=== PATIENT | female | born 1955 | race Two or more races ===

== ENCOUNTER 2022-05-02 05:45 | Day surgery (SDC) | payer OTHER | END 2022-05-02 11:55 | disposition home or self-care (01) | LOC: AMB-ENDOS 05:45 | PROVIDERS: ATTEND Surgery | DX: D12.4 Benign neoplasm of descending colon (principal); Z20.822 Contact with and (suspected) exposure to COVID-19; K57.30 Diverticulosis of large intestine without perforation or abscess without bleeding; K64.4 Residual hemorrhoidal skin tags; I10 Essential (primary) hypertension; E78.5 Hyperlipidemia, unspecified; E03.9 Hypothyroidism, unspecified; E10.9 Type 1 diabetes mellitus without complications ==

== ENCOUNTER 2022-05-22 11:18 | Inpatient (IN) | payer OTHER ==
[~2022-05-22] VITALS: Ht 172.7 cm; Wt 104.8 kg
[2022-05-22] MEDS ORDERED: LANTUS (13:04)
[2022-05-22] MEDS ORDERED: GLUCOTROL XL5 MG PO (13:04)
[2022-05-22] MEDS ORDERED: XIGDUO XR 5 MG1 EAC1 PO (13:05)
[2022-05-22] MEDS ORDERED: LOTREL 5-10 MG1 CAP PO (13:05)
[2022-05-22] MEDS ORDERED: CRESTOR40 MG PO (13:06)
[2022-05-22] MEDS ORDERED: CARVEDILOL12.5 MG PO (13:06)
[2022-05-22] MEDS ORDERED: HORIZANT300 MG PO (13:06)
[2022-05-22] MEDS ORDERED: SYNTHROID175 MCG PO (13:07)
[2022-05-28] MEDS ORDERED: PERCOCET 5-3251 EACH PO (18:37)
== END 2022-05-28 21:14 | disposition home or self-care (01) | DRG 331 ==
LOC: SURH 05-24 06:34 → O/R 05-24 06:34 → SURH 05-24 11:15
PROVIDERS: ADMIT Surgery; ATTEND Surgery
PROC: 07BB4ZZ Excision of Mesenteric Lymphatic, Percutaneous Endoscopic Approach (ICD-10-PCS; 2022-05-24)
PROC: 3E0F7SF Introduction of Other Gas into Respiratory Tract, Via Natural or Artificial Opening (ICD-10-PCS; 2022-05-24)
PROC: 0DTF4ZZ Resection of Right Large Intestine, Percutaneous Endoscopic Approach (ICD-10-PCS; principal; 2022-05-24 11:15)
DX: D37.4 Neoplasm of uncertain behavior of colon (principal); R59.0 Localized enlarged lymph nodes; K66.0 Peritoneal adhesions (postprocedural) (postinfection)